=== PATIENT | male | born 1990 | race Caucasian/White ===

== ENCOUNTER 2023-04-05 14:05 | Emergency (ER) | payer SELFPAY ==
[2023-04-05 14:11] VITALS: BP 149/97
[2023-04-05 14:30] LABS: % Basophils 0.7 % (0-2); % Eosinophils 1.3 % (0-6); % Immature Granulocytes 0.4 % (0-0.5); % Lymphocytes 14.4 % (20.5-51.1); % Monocytes 7.4 % (1.7-9.3); % Neutrophils 75.8 % (42.2-75.2); Absolute Basophils 0.1 10^3/uL (0-0.2); Absolute Eosinophils 0.1 10^3/uL (0-0.7); Absolute Lymphocytes 1.5 10^3/uL (1.2-3.4); Absolute Monocytes 0.8 10^3/uL (0.1-0.6); Absolute Neutrophils 8.2 10^3/uL (1.4-6.5); Hematocrit 41.7 % (39.0-52.0); Hemoglobin 14.8 g/dL (13.0-18.0); Mean Corp Hgb Conc. 35.5 g/dL (33.0-37.0); Mean Corpuscular Hgb 30.6 pg (27.0-31.0); Mean Corpuscular Volume 86.3 fL (80.0-94.0); Mean Platelet Volume 11.3 fL (7.4-10.4); Nucleated Red Blood Cells % 0 % (-); Platelet Count 211 10^3/uL (130-400); Red Blood Cell Count 4.83 10^6/uL (4.70-6.10); Red Cell Dist. Width 11.7 % (11.5-14.5); White Blood Cell Count 10.7 10^3/uL (4.8-10.8)
[2023-04-05 14:43] LABS: ALT (SGPT) 18 U/L (0-50); AST (SGOT) 28 U/L (17-59); Albumin 5.2 g/dl (3.5-5.0); Alkaline Phosphatase 103 U/L (38-126); Blood Urea Nitrogen 11 mg/dl (9-20); Calcium 9.6 mg/dl (8.4-10.2); Carbon Dioxide 29 mmol/L (22-30); Chloride 100 mmol/L (98-107); Glucose 109 mg/dl (70-99); Potassium 3.9 mmol/L (3.5-5.1); Sodium 136 mmol/L (135-145); Total Bilirubin 0.8 mg/dl (0.2-1.3); Total Protein 7.9 g/dl (6.3-8.2); eGFR > 60.00
--- NOTE | 2023-04-05 15:16 | ED.GENMED ---
History of Present Illness
<Paola Castellano NP - Last Filed: 04/05/23 19:10>
General
Chief Complaint: Headache
Source: patient
Exam Limitations: none
Time Seen by Provider: 04/05/23 15:09
Nursing documentation reviewed up to this point in time: agreed with
Travel History
Have you had any contact with someone who has COVID-19?: No
Do you have any symptoms of coronavirus? Fever > 100 degrees, chills, cough, shortness of breath, sore throat, loss of taste or smell, muscle aches, or headache?: No
History of Present Illness
History of Present Illness:
Patient to ED with complaint of severe head pain. States he noticed developement of frequent headaches 2 yrs ago. Over the past few days the pain has escalated. States he now has dizziness and blurred vision. No n/v/d. Denies fever or chills.
No sound sensativity. +light sensivity. Left work early today due to pain. Eating and drinking normnally. Reports night sweats. Taking tylenol and ibuprofen without relief. Smokes marijuana and states that helps with the pain. Brought to ED
by mother for eval. No prior work up for this. Family hx: aunt with migraine hx.
Past History
<Paola Castellano TOP IRONER - Last Filed: 04/05/23 19:10>
Past History
ED Past Medical History: None
ED Past Surgical History: None
Social History
Tobacco: Vaping
Alcohol: Occasional
Drug: Marijuana (smokes daily)
Personal: Single
Living: with family
Employment: Employed
Review of Systems
<Paola Castellano TOP IRONER - Last Filed: 04/05/23 19:10>
Review of Systems
Allergies reviewed?: Yes
All Other Systems: ROS reviewed and negative except as documented in HPI and ROS
Constitutional: Reports no symptoms
EENT: Reports no symptoms
Respiratory: Reports no symptoms
Cardiac: Reports no symptoms
ABD/GI: Reports no symptoms
: Reports no symptoms
Musculoskeletal: Reports no symptoms
Skin: Reports no symptoms
Neurological: Reports dizzy and headache
Psychiatric: Reports no symptoms
Phy Exam
<Paola Castellano TOP IRONER - Last Filed: 04/05/23 19:10>
General Physical Exam
General Presentation: moderate distress
General age: appears stated age
General Skin: warm and dry
General Habitus: normal
General Mental: alert
General Hydration: appears well hydrated
ENT Exam
ENT Exam: EOMI and other (bilateral clear nasal discharge. Inflammed mucosa)
Eye Exam
Eye Exam: PERRL, EOMI and conjunctiva normal
Neurological Exam
Neurological Exam: alert, oriented x3, CN II-XII intact, no motor deficits, no sensory deficits, speech normal and normal gait
Musculoskeletal Exam
Musculoskeletal Exam: full ROM and neuro vasc intact
Skin Exam
Skin Exam: normal color, warm/dry and no rash
Psychiatric Exam
Psychiatric Exam: normal mood/affect
Course
<Paola Castellano TOP IRONER - Last Filed: 04/05/23 19:10>
Orders/Labs/Results
Orders:
Orders
04/05/23 14:16
CMP [Comprehensive Metabolic Panel] Urgent
Complete Blood Count/With Diff Urgent
04/05/23 15:16
CT Head W/o Iv Contrast Urgent
Comment:
Reason For Exam: severe head pain, blurred vision, dizzy
04/05/23 16:34
0.9% Sodium Chloride 1000 ml [Nss] 1,000 ml IV BOLUS
Dexamethasone Sod Phosphate [Decadron] 10 mg IV NOW STA
Diphenhydramine [Benadryl] 50 mg IV NOW STA
Ketorolac [Toradol] 30 mg IV NOW STA
Prochlorperazine [Compazine] 10 mg IV NOW STA
Abnormal Lab Results
04/05/23
14:16
MPV 11.3 H fL
(7.4-10.4)
Absolute Neuts (auto) 8.2 H 10^3/uL
(1.4-6.5)
Absolute Monos (auto) 0.8 H 10^3/uL
(0.1-0.6)
Neutrophils % 75.8 H %
(42.2-75.2)
Lymphocytes % 14.4 L %
(20.5-51.1)
Creatinine 0.6 L mg/dL
(0.7-1.3)
Glucose 109 H mg/dl
(70-99)
Albumin 5.2 H g/dl
(3.5-5.0)
04/05/23 14:16
04/05/23 14:16
Vital Signs
Initial and Last Documented VS:
Initial Vital Signs
Temp Pulse Resp BP Pulse Ox
97.8 F 82 18 149/97 99
04/05/23 14:11 04/05/23 14:11 04/05/23 14:11 04/05/23 14:11 04/05/23 14:11
Last Documented Vital Signs
Temp Pulse Resp BP Pulse Ox
97.8 F 82 18 149/97 99
04/05/23 14:11 04/05/23 14:11 04/05/23 14:11 04/05/23 14:11 04/05/23 14:11
<Danial Maria DO - Last Filed: 04/05/23 17:31>
Orders/Labs/Results
Orders:
Orders
04/05/23 14:16
CMP [Comprehensive Metabolic Panel] Urgent
Complete Blood Count/With Diff Urgent
04/05/23 15:16
CT Head W/o Iv Contrast Urgent
Comment:
Reason For Exam: severe head pain, blurred vision, dizzy
04/05/23 16:34
0.9% Sodium Chloride 1000 ml [Nss] 1,000 ml IV BOLUS
Dexamethasone Sod Phosphate [Decadron] 10 mg IV NOW STA
Diphenhydramine [Benadryl] 50 mg IV NOW STA
Ketorolac [Toradol] 30 mg IV NOW STA
Prochlorperazine [Compazine] 10 mg IV NOW STA
Abnormal Lab Results
04/05/23
14:16
MPV 11.3 H fL
(7.4-10.4)
Absolute Neuts (auto) 8.2 H 10^3/uL
(1.4-6.5)
Absolute Monos (auto) 0.8 H 10^3/uL
(0.1-0.6)
Neutrophils % 75.8 H %
(42.2-75.2)
Lymphocytes % 14.4 L %
(20.5-51.1)
Creatinine 0.6 L mg/dL
(0.7-1.3)
Glucose 109 H mg/dl
(70-99)
Albumin 5.2 H g/dl
(3.5-5.0)
04/05/23 14:16
04/05/23 14:16
Vital Signs
Initial and Last Documented VS:
Initial Vital Signs
Temp Pulse Resp BP Pulse Ox
97.8 F 82 18 149/97 99
04/05/23 14:11 04/05/23 14:11 04/05/23 14:11 04/05/23 14:11 04/05/23 14:11
Last Documented Vital Signs
Temp Pulse Resp BP Pulse Ox
97.8 F 82 18 149/97 99
04/05/23 14:11 04/05/23 14:11 04/05/23 14:11 04/05/23 14:11 04/05/23 14:11
<Paola Castellano NP - Last Filed: 04/05/23 19:10>
*Radiology
Radiology exam reviewed: radiology read reviewed
*Pulse Oximetry
Patient hypoxic: no
*Critical Care Note
Total Time (30-74mins, 75-104mins- exclusive of procedures): Not Applicable
<Paola Castellano NP - Last Filed: 04/05/23 19:10>
Update Note
Update Note:
After further discussion, patient now admits to cocaine use. States he uses (snorts) every weekend. He then reports his last use was yesterday (Monday). Nasal mucos is inflammed. Large amt of clear nasal discharge present. Complains maxillary
sinus pressure. Will cover with doxy, follow up with ENT. CT reveals Chiari I malformation. Discussed finding with patient. Also discussed with Dr. Rosario. No further ED intervention required. Will need MRI outpatient. He agrees to follow up
with PCP for MRI referral. Given numver for ENT and Neurology follow-up. He is agreable to plan.
ED Attending Note
<Paola Castellano TOP IRONER - Last Filed: 04/05/23 19:10>
-
Portions of this chart may have been created with voice recognition software.� Occasional wrong word or��sound alike� substitutions may have occurred due to the inherent limitations of voice recognition software.
<Danial Maria DO - Last Filed: 04/05/23 17:31>
ED Attending Note
Patient seen and examined by attending physician: Yes
I performed the substantive portion of visit, reviewed & personally made and approve the management plan that is documented in note by myself or EUGENE.: Yes
ED Attending Note:
Patient is a 32-year-old male who presents to the emergency department complaining of increasing headaches for months. Mostly right temporal and thinks that the sinuses. Patient denies fever or chills. Patient admits to nasal congestion but
denies sore throat. Patient denies any visual or speech difficulties. Patient denies any focal weakness or ataxia. Patient denies any nausea numbness or paresthesias. Patient denies any nausea or vomiting. Patient has been doing cocaine.
Patient denies history of hypertension or diabetes. Patient does smoke and vape. Physical exam patient appears to be in mild distress. Patient has no sinus tenderness or scalp tenderness. No deformities. Patient is normocephalic with a supple
neck. Eyes are noninjected. Extraocular muscles intact. Pupils equal reactive to light. Visual marie intact. Patient has clear rhinorrhea from the left nares. Oropharynx is clear. Heart is regular no bruits. Abdomen soft nontender.
Reviewed the labs. This is probably more drug related but possible migraines. Patient does have Chiari 1 malformation. Patient will need follow-up.
Discharge Plan
Departure
Patient Disposition: Home (Routine Discharge)
Date of Disposition: 04/05/23
Time of Disposition: 18:01
Patient with high blood pressure during this ER visit?: No
Condition: Good
Covid-19: Not Applicable
Discharge Problem:
Headache
Instructions: Headache, Adult (DC), Chiari Malformation (DC)
Prescriptions:
New
doxycycline hyclate 100 mg capsule
100 mg PO BID Qty: 20 0RF
No Action
ibuprofen 600 mg tablet
600 mg PO Q8H PRN (Reason: pain) Qty: 30 0RF
cyclobenzaprine 5 mg tablet
5 mg PO HS PRN (Reason: muscle spasm) Qty: 7 0RF
lidocaine [Lidocare] 4 % adhesive patch,medicated
1 patch topical DAILY PRN (Reason: pain) Qty: 10 0RF
Referrals:
Jc Rosario MD [Active] - Next open appointment (Neurology)
Chidi Bello MD [Active] - Next open appointment (ENT)
UNKNOWN - PT DOES,NOT KNOW [Family Provider] -
Activity Restrictions/Additional Instructions:
Folow up with your family doctor this week. As we discussed, you will need an MRI for further evaluation of your CHIARI MALFORMATION. Return to the emergency department immediately for any changes in/worsening of your symptoms.
Interventions
Interventions:
*Risk Screen - Suicide Last Done: 04/05/23 14:50
*General Assessment Last Done: 04/05/23 14:50
*Neglect/Abuse Screening Last Done: 04/05/23 14:50
ED- Fall Risk Assessment Last Done: 04/05/23 14:50
*ED COVID-19 Vaccine History Last Done: 04/05/23 14:11
*Nursing Disposition Last Done: 04/05/23 18:08
ED- Neurological Assessment Last Done: 04/05/23 14:50
Discharge Date and Time
Discharge Date/Time: 04/05/23 18:17
[2023-04-05] MEDS: DECADRON 10 MG IV (16:46)
[2023-04-05] MEDS: TORADOL 30 MG IV (16:46)
[2023-04-05] MEDS: BENADRYL 50 MG IV (16:46)
[2023-04-05] MEDS: COMPAZINE 10 MG IV (16:46)
[2023-04-05] MEDS: NSS 1000 IV (16:47)
== END 2023-04-05 18:17 | disposition home or self-care (01) ==
LOC: EMR 14:05
PROVIDERS: Emergency Medicine; EMERGENCY PHYSICIAN Emergency Medicine
DX: R51.9 Headache, unspecified (principal)
CPT/HCPCS: 99284; 96374; 96375; 96361; 70450; 80053; 85025